=== PATIENT | female | born 1985 | race African-American/Black ===

== ENCOUNTER 2018-05-16 15:59 | Emergency (ER) | payer MEDICAID ==
[~2018-05-16] VITALS: Ht 162.6 cm; Wt 99.8 kg
[~2018-05-16 15:59] MED LIST: AMOXICILLIN 50500 M1 PO; AMOXICILLIN500 M1 PO; AUGMENTIN 875875 MG PO; BACTRIM DS TAB1 EACH PO; CHERATUSSIN AC118 ML PO; FLEXERIL PO; FLONASE 0.05%50 MCG NASAL; IBUPROFEN 800800 M1 PO; MUCINEX D TABL1 EACH PO; NAPROSYN500 MG PO; NOHOMEMEDICATIONS; NORCO 5-325 TA1 EACH PO; PENICILLIN VK250 MG PO; PHENERGAN 25 MG25 M1 PO; PYRIDIUM200 MG PO; RONDEC-DM SYRU120 ML PO; TESSALON PERLE100 MG PO; VENTOLIN17 GM INH; ZPAK PO
[2018-05-16 16:33] LABS: URINE BILIRUBIN NEGATIVE (Negative); URINE BLOOD 1+ (Negative); URINE CLARITY HAZY; URINE COLOR YELLOW; URINE GLUCOSE-RANDOM NEGATIVE (Negative); URINE KETONES NEGATIVE (Negative); URINE LEUKOCYTES-REFLEX 1+ (Negative); URINE NITRITE-REFLEX NEGATIVE (Negative); URINE PROTEIN NEGATIVE (Negative); URINE SPECIFIC GRAVITY >= 1.030 (1.005-1.030); URINE UROBILINOGEN 0.2 E.U./dl (0.2-1.0)
[2018-05-16 16:42] LABS: ABSOLUTE BASOPHILS 0.1 thou/uL (0.0-0.2); ABSOLUTE EOSINOPHILS 0.1 thou/uL (0.0-0.7); ABSOLUTE MONOCYTES 0.6 thou/uL (0.0-1.2); ABSOLUTE NEUTROPHILS 8.6 thou/uL (1.6-8.1); BASOPHILS 0.6 %; EOSINOPHILS 1.3 %; HEMATOCRIT 37.3 % (37.0-47.0); HEMOGLOBIN 12.7 gm/dL (12.0-15.0); LYMPHOCYTES 17.4 %; MCH 32.6 pg (26.0-34.0); MCV 96.1 fL (80.0-100.0); MONOCYTES 4.9 %; MPV 7.1 fl. (7.2-11.1); NUCLEATED RBCS 0 /100WBC; PLATELET COUNT* 294 thou/uL (150-400); POLYS 75.8 %; RBC 3.88 mil/uL (4.20-5.00); RDW-CV 12.7 % (10.5-14.5); WBC 11.4 thou/uL (4.0-11.0)
[2018-05-16 16:54] LABS: CALCIUM 8.9 mg/dL (8.5-10.1); CREATININE 0.7 mg/dL (0.6-1.3); POTASSIUM 3.4 mmol/L (3.5-5.1)
[2018-05-16 16:59] LABS: ALBUMIN 3.3 g/dL (3.4-5.0); TOTAL BILIRUBIN 0.2 mg/dL (<0.1-1.0); TOTAL PROTEIN 7.4 g/dL (6.4-8.2)
[2018-05-16 17:28] LABS: BACTERIA-REFLEX 1-9 Few /HPF (None Seen); CASTS None Seen /LPF (None Seen); CRYSTALS None Seen /LPF (None Seen); MUCUS 4-6 Moderate strn/LPF (None Seen); SQUAMOUS >10 Many /LPF (0-3); URINE RBC 3-10 Few /HPF (0-2); URINE WBC-REFLEX 6-15 Few /HPF (0-5)
[2018-05-16] MEDS ORDERED: MACROBID 100 M100 M2 PO (18:29)
[2018-05-16 18:40] VITALS: BP 107/55
== END 2018-05-16 18:42 | disposition home or self-care (01) ==
LOC: M.ERS 15:59
PROVIDERS: Nurse Practitioner
DX: O23.41 Unspecified infection of urinary tract in pregnancy, first trimester (principal); Z90.49 Acquired absence of other specified parts of digestive tract; Z3A.01 Less than 8 weeks gestation of pregnancy

== ENCOUNTER 2021-01-25 08:27 | Emergency (ER) | payer OTHER, MEDICAID ==
[~2021-01-25] VITALS: Ht 162.6 cm; Wt 104.3 kg
[~2021-01-25 08:27] MED LIST changes: +MACROBID 100 M100 M2 PO
[2021-01-25] MEDS ORDERED: AMOXICILLIN 50500 MG PO (08:36)
[2021-01-25] MEDS ORDERED: FLONASE 0.05%50 MCG NARES (08:48)
[2021-01-25] MEDS ORDERED: ALLEGRA-D 24 H1 EACH PO (08:48)
[2021-01-25] MEDS ORDERED: IBUPROFEN 800800 MG PO (08:48)
[2021-01-25 09:01] VITALS: BP 147/90
== END 2021-01-25 09:02 | disposition home or self-care (01) ==
LOC: M.ERS 08:27
DX: J32.9 Chronic sinusitis, unspecified (principal); K08.89 Other specified disorders of teeth and supporting structures; F17.210 Nicotine dependence, cigarettes, uncomplicated; Z90.49 Acquired absence of other specified parts of digestive tract; Z79.2 Long term (current) use of antibiotics